=== PATIENT | female | born 1985 | race Asian ===

== ENCOUNTER 2018-05-23 19:32 | Emergency (ER) | payer MEDICAID ==
[2018-05-23] MEDS ORDERED: HYDROmorphONE/DILAUDID 2 MG/ML INJ IVP ONE (19:43)
--- NOTE | 2018-05-23 19:46 | EDPHY ---
H & P Stated Complaint: not feeling well, last heroin use yesterday, no methadone or heroin today Source: Patient Exam Limitations: No limitations - Personal History Current Tetanus Diphtheria and Acellular Pertussis (TDAP): No - Medical/Surgical History Hx Asthma: No Hx Chronic Respiratory Disease: No Hx Diabetes: No Hx Cardiac Disease: No Hx Renal Disease: No Hx Cirrhosis: No Hx Alcoholism: No Hx HIV/AIDS: No Hx Splenectomy or Spleen Trauma: No Other PMH: heroin user, anxiety, TARUN, IBS, kidney infection, GASTRITIS, OVARIAN CYSTS, PARTIAL BOWEL OBSTRUCTION - Family History Significant Family History: No pertinent family hx - Social History Smoking Status: Light smoker Alcohol Use: None Time Seen by Provider: 05/23/18 19:43 HPI/ROS: CHIEF COMPLAINT: Not feeling well HISTORY OF PRESENT ILLNESS: Patient is a 32-year-old female with chronic heroin and methadone use. She states that she has not used for last 24 hr and is having body aches and nausea and tremors. She has not had a fever. She was admitted a week ago at [facility] for bacteremia. She states that she had a echocardiogram that was negative and a lumbar puncture that was negative. She was on antibiotics well in the hospital with but was not discharged with antibiotics. She has track laird but no obvious cellulitis or infection or abscess. She states that she is scheduled to start taking Suboxone again tomorrow and has an appointment. REVIEW OF SYSTEMS: Constitutional: denies: chills, fever, recent illness, recent injury EENTM: denies: blurred vision, double vision, nose congestion Respiratory: denies: cough, shortness of breath Cardiac: denies: chest pain, irregular heart rate, lightheadedness, palpitations Gastrointestinal/Abdominal: denies: abdominal pain, diarrhea, nausea, vomiting, blood streaked stools Genitourinary: denies: dysuria, frequency, hematuria, pain Musculoskeletal: denies: joint pain, muscle pain Skin: See HPI Neurological: denies: headache, numbness, paresthesia, tingling, dizziness, weakness Hematologic/Lymphatic: denies: blood clots, easy bleeding, easy bruising Immunologic/allergic: denies: HIV/AIDS, transplant EXAM: GENERAL: Achy, anxious well-nourished and in no acute distress. HEAD: Atraumatic, normocephalic. EYES: Pupils equal round and reactive to light, extraocular movements intact, sclera anicteric, conjunctiva are normal. ENT: TMs normal, nares patent, oropharynx clear without exudates. Moist mucous membranes. NECK: Normal range of motion, supple without lymphadenopathy or JVD. LUNGS: Breath sounds clear to auscultation bilaterally and equal. No wheezes rales or rhonchi. HEART: Regular rate and rhythm without murmurs, rubs or gallops. ABDOMEN: Soft, nontender, normoactive bowel sounds. No guarding, no rebound. No masses appreciated. BACK: No CVA tenderness, no spinal tenderness, step-offs or deformities EXTREMITIES: Normal range of motion, no pitting or edema. No clubbing or cyanosis. NEUROLOGICAL: Cranial nerves II through XII grossly intact. Normal speech, normal gait. 5/5 strength, normal movement in all extremities, normal sensation PSYCH: Normal mood, normal affect. SKIN: Multiple track laird, no obvious cellulitis or infection (Hung Hua) Constitutional: Initial Vital Signs Temperature (C) 37.2 C 05/23/18 19:40 Heart Rate 106 H 05/23/18 19:40 Respiratory Rate 18 05/23/18 19:40 Blood Pressure 122/75 H 05/23/18 19:40 O2 Sat (%) 95 05/23/18 19:40 O2 Delivery Mode Room Air Allergies/Adverse Reactions: cephalexin monohydrate [From Keflex] Allergy (Unknown, Verified 05/31/15 23:00) gabapentin [From Neurontin] Allergy (Verified 05/31/15 23:00) haloperidol [From Haldol] Allergy (Verified 05/31/15 23:00) haloperidol lactate [From Haldol] Allergy (Verified 05/31/15 23:00) hydrocodone bitartrate [From [place]] Allergy (Verified 05/31/15 23:00) ketorolac tromethamine [From Toradol] Allergy (Verified 05/31/15 23:00) NSAIDS (Non-Steroidal Anti-Inflamma Allergy (Verified 10/05/16 13:34) promethazine HCl [From Phenergan] Allergy (Verified 05/31/15 23:00) Home Medications: Medication Instructions Recorded NK [No Known Home Meds] 10/05/16 Medical Decision Making ED Course/Re-evaluation: 8:30 p.m. the patient is feeling better. She is sleeping. Her heart rate is improving. We will continue to observe. This appears to be mostly opiate withdrawal. No fever. 8:50 p.m. the patient is feeling better but still fatigued and slightly tachycardic. I will add on lab work to evaluate for occult infection. She does not have a fever. We will continue to hydrate. Also had Ativan for likely withdrawal. 10:00 p.m. patient is feeling better but very somnolecent after Ativan. Her blood work is reassuring. Her heart rate is normalizing. We will discharge her when she is more alert. Blood pressure is 100/60. 10:45 p.m. the patient continues to sleep. She is arousable with deep stimulation. Continue to observe. I suspect that she will be able to be discharged whenever she is more alert. To transfer to Dr. Shankar at shift change. (Hung Hua) The patient was observed overnight in the emergency department and eventually was awake and alert. She was discharged home with a sober friend. (Harleen Shankar) Differential Diagnosis: Partial list of the Differential diagnosis considered include but were not limited to; opiate withdrawal, anxiety, benzo withdrawal, and although unlikely based on the history and physical exam, I also considered sepsis, bacteremia. I discussed these differential diagnoses and the plan with the patient as well as the usual and expected course. The patient understands that the diagnosis is provisional and that in medicine we are not always correct and that further workup is often warranted. Usual and customary warnings were given. All of the patient's questions were answered. The patient was instructed to return to the emergency department should the symptoms at all worsen or return, otherwise to followup with the physician as we discussed. ( Hung Hua) - Data Points Laboratory Results: Laboratory Results 05/23/18 21:30 05/23/18 21:30 Medications Given: Discontinued Medications Hydromorphone HCl (Dilaudid) 1 mg IVP EDNOW ONE Stop: 05/23/18 19:44 Last Admin: 05/23/18 20:01 Dose: 1 mg Sodium Chloride (Ns) 1,000 mls @ 3,000 mls/hr IV ONCE ONE Stop: 05/23/18 20:21 Last Admin: 05/23/18 20:03 Dose: 1,000 mls Sodium Chloride (Ns) 1,800 mls @ 3,600 mls/hr 30 ml/kg infuse over 30 min ( 1800 ml) IV EDNOW ONE PRN Reason: Protocol Stop: 05/23/18 21:19 Last Admin: 05/23/18 21:26 Dose: 1,800 mls Lorazepam (Ativan Injection) 1 mg IVP EDNOW ONE Stop: 05/23/18 20:52 Last Admin: 05/23/18 21:27 Dose: 1 mg Departure - Departure Disposition: Home, Routine, Self-Care Clinical Impression: Opiate withdrawal Condition: Fair Instructions: Opioid Withdrawal (ED) Additional Instructions: Start your Suboxone plan tomorrow as prepared. Referrals: Patient,NotPresent [Unknown] - As per Instructions
[2018-05-23] MEDS ORDERED: NS 1,000 ML IV ONE (20:02)
[2018-05-23] MEDS ORDERED: NS 1,800 ML IV ONE (20:50)
[2018-05-23] MEDS ORDERED: LORazepam 2 MG/ML INJ IVP ONE (20:51)
[2018-05-23 21:41] LABS: PLATELET COUNT 292 10^3/uL (150-400)
[2018-05-23 21:50] LABS: INR 1.02 (0.83-1.16); PROTIME(PATIENT) 13.6 SEC (12.0-15.0)
[2018-05-24 05:20] VITALS: BP 100/70
== END 2018-05-24 05:20 | disposition home or self-care (01) ==
LOC: EDUNIT#
DX: F11.23 Opioid dependence with withdrawal (principal); E86.9 Volume depletion, unspecified; F17.200 Nicotine dependence, unspecified, uncomplicated
CPT/HCPCS: 96374; J1170; J2060